=== PATIENT | male | born 1960 | race Hispanic/Latino ===

== ENCOUNTER 2018-10-22 08:50 | Day surgery (SDC) | payer MEDICARE ==
[~2018-10-22] VITALS: Ht 167.6 cm; Wt 93.3 kg
[~2018-10-22 08:50] MED LIST: AMLO10TA7 PO; ASPI-1197 PO; CETI10TA57 PO; CLON0.1T PO; CLOP75TA14 PO; DOCU100T8 PO; GABA-529 PO; GLIP2.5T17 PO; HYDR25TA PO; INSU100I21 SQ; INSU100I3 SQ; LEVO75TA10 PO; LORA2TAB2 PO; METF-446 PO; METO-391 PO; MULT-1258 PO; NITR0.4T SL; OMEP-50 PO; SERT100T12 PO; SIMV20TA6 PO; SODIUM CHLORIDE 0.9% 1000ML 1,000 ML IV ONE; SPIR25TA6 PO
[2018-10-22 10:55] VITALS: BP 145/69
[2018-10-22] MEDS ORDERED: RANI150C4 PO (11:49)
[2018-10-22] MEDS ORDERED: PSYL0.4C2 PO (11:49)
[2018-10-22] MEDS ORDERED: LISI-617 PO (11:49)
[2018-10-22] MEDS ORDERED: METO100T7 PO (11:49)
[2018-10-22] MEDS ORDERED: SERT100T12 PO (11:49)
[2018-10-22] MEDS ORDERED: ATOR20TA65 PO (11:49)
[2018-10-22 11:54] VITALS: BP 97/49
[2018-10-22 11:59] VITALS: BP 100/53
[2018-10-22 12:04] VITALS: BP 101/54
[2018-10-22 12:10] VITALS: BP 106/59
[2018-10-22 12:27] VITALS: BP 108/56
== END 2018-10-22 12:27 | disposition home or self-care (01) ==
LOC: ENDO 08:50 → DAH 08:50 → ENDO 12:27
PROVIDERS: ATTEND Internal Medicine
DX: Z09 Encounter for follow-up examination after completed treatment for conditions other than malignant neoplasm (principal); K63.5 Polyp of colon; K62.1 Rectal polyp; E78.5 Hyperlipidemia, unspecified; E11.9 Type 2 diabetes mellitus without complications; M19.90 Unspecified osteoarthritis, unspecified site; I25.10 Atherosclerotic heart disease of native coronary artery without angina pectoris; I11.0 Hypertensive heart disease with heart failure; I50.22 Chronic systolic (congestive) heart failure; Z86.010 Personal history of colon polyps; Z79.899 Other long term (current) drug therapy; Z79.84 Long term (current) use of oral hypoglycemic drugs; Z98.890 Other specified postprocedural states; Z79.01 Long term (current) use of anticoagulants
CPT/HCPCS: 45380; 82948; 88305; A4606; J7030

== ENCOUNTER 2020-03-14 09:13 | Day surgery (SDC) | payer MEDICARE ==
[2020-03-13 11:56] LABS: BASOPHILS % (AUTO) 0.4 % (0.0-5.0); EOSINOPHILS % (AUTO) 4.8 % (0.0-8.0); HEMATOCRIT 37.2 % (42-54); LYMPHOCYTES % (AUTO) 27.9 % (21.0-51.0); MEAN CORPUSCULAR HEMOGLOBIN 33.9 pg (27.0-33.0); MEAN CORPUSCULAR HGB CONC 36.8 g/dL (32.0-36.0); MEAN CORPUSCULAR VOLUME 92.1 fL (79-99); MONOCYTES % (AUTO) 6.3 % (3.0-13.0); NEUTROPHILS % (AUTO) 59.7 % (40.0-77.0); PLATELET COUNT (AUTO) 194 K/uL (130-400); RED BLOOD CELL COUNT(AUTO) 4.04 MIL/uL (4.50-6.20); RED CELL DISTRIBUTION WIDTH 11.8 % (11.0-15.5); WHITE BLOOD COUNT (AUTO) 9.9 K/uL (4.8-10.8)
[2020-03-13 12:04] LABS: CREATININE 1.5 mg/dL (0.5-1.5); POTASSIUM 4.3 mmol/L (3.5-5.1)
[2020-03-13 12:06] LABS: INR 1.18 (0.85-1.15); PROTHROMBIN TIME 12.4 SEC (9.6-11.6)
[2020-03-13 12:07] LABS: PARTIAL THROMBOPLASTIN TIME 32.4 SEC (26.3-35.5)
[2020-03-13 13:25] VITALS: BP 111/71
[2020-03-14] VITALS (12 sets, daily range): BP systolic 98–138; BP diastolic 58–73
[~2020-03-14 09:13] MED LIST changes: +AMLO-258 PO; -AMLO10TA7 PO; +APIX5TAB PO; -ASPI-1197 PO; +ATOR20TA65 PO; -CETI10TA57 PO; -CLOP75TA14 PO; -DOCU100T8 PO; +FAMO40TA7 PO; -GABA-529 PO; +GLIP-162 PO; -GLIP2.5T17 PO; -INSU100I3 SQ; +INSU3INS5 SQ; +LEVO112T7 PO; -LEVO75TA10 PO; +LISI-617 PO; -LORA2TAB2 PO; +LORA2TAB80 PO; +MECL-160 PO; -METO-391 PO; +METO100T14 PO; -MULT-1258 PO; -NITR0.4T SL; +NITR0.4T50 SL; -OMEP-50 PO; -SIMV20TA6 PO; +SODIUM CHLORIDE 0.9% 100 ML IV SCH; -SODIUM CHLORIDE 0.9% 1000ML 1,000 ML IV ONE
[2020-03-14] MEDS ORDERED: FLUMAZENIL 0.1MG/1ML 5ML VIAL IV ONE (10:37)
[2020-03-14] MEDS ORDERED: SODIUM CHLORIDE 0.9% 1000ML 1,000 ML IV ONE (10:38)
[2020-03-14] MEDS ORDERED: NALOXONE HCL 0.4 MG/1 ML ML ONE (10:38)
[2020-03-14] MEDS ORDERED: FENTANYL CITRATE PF 50 MCG/1 ML 2ML VIAL ONE (10:38)
[2020-03-14] MEDS ORDERED: MIDAZOLAM HCL 1 MG/ML 2ML VIAL ONE (10:39)
[2020-03-14] MEDS ORDERED: FENTANYL CITRATE PF 50 MCG/1 ML 2ML VIAL IVP ONE (11:38)
[2020-03-14] MEDS ORDERED: MIDAZOLAM HCL 1 MG/ML 2ML VIAL IVP ONE (11:38)
== END 2020-03-14 13:00 | disposition home or self-care (01) ==
LOC: DAH 09:13
PROVIDERS: ATTEND Internal Medicine Cardiovascular Disease
DX: I48.0 Paroxysmal atrial fibrillation (principal); E11.22 Type 2 diabetes mellitus with diabetic chronic kidney disease; I13.0 Hypertensive heart and chronic kidney disease with heart failure and stage 1 through stage 4 chronic kidney disease, or unspecified chronic kidney disease; N18.9 Chronic kidney disease, unspecified; I50.42 Chronic combined systolic (congestive) and diastolic (congestive) heart failure; E11.51 Type 2 diabetes mellitus with diabetic peripheral angiopathy without gangrene; E78.5 Hyperlipidemia, unspecified; I87.2 Venous insufficiency (chronic) (peripheral); E03.9 Hypothyroidism, unspecified; Z79.01 Long term (current) use of anticoagulants; Z79.899 Other long term (current) drug therapy; Z98.890 Other specified postprocedural states; Z95.1 Presence of aortocoronary bypass graft; Z79.4 Long term (current) use of insulin
CPT/HCPCS: 36415; 80048; 82948 ×2; 85025; 85610; 85730; 92960; 93005 ×2; A4215; A4216; A4221; A4222; A4223 ×3; A4606; A4663; J2250; J3010; J7030; 99152; J2310; J3490

== ENCOUNTER 2021-01-12 04:14 | Inpatient (IN) | payer MEDICARE ==
[~2021-01-12] VITALS: Ht 157.5 cm; Wt 91.3 kg
[~2021-01-12 04:14] MED LIST changes: -CLON0.1T PO; +DOCU100T PO; -FAMO40TA7 PO; +INSU100I15 SQ; -INSU100I21 SQ; -LEVO112T7 PO; +LEVO125C4 PO; -LISI-617 PO; -MECL-160 PO; -METF-446 PO; -METO100T14 PO; +METO50TA9 PO; +PANT40TA55 PO; +SERT-440 PO; -SERT100T12 PO; -SODIUM CHLORIDE 0.9% 100 ML IV SCH; -SPIR25TA6 PO
[2021-01-12 04:56] LABS: ABG BASE EXCESS -2.7 mmol/L (-2.0-3.0); ABG HCO3 20.4 mmol/L (21.0-28.0); ABG OXYGEN SATURATION 93.7 % (95.0-99.0); ABG PCO2 31 mmHg (35-48)
[2021-01-12] MEDS ORDERED: FUROSEMIDE 40MG VIAL IVP ONE (05:00)
[2021-01-12] MEDS ORDERED: IPRATROPIUM/ALBUTEROL SULFATE 3 ML SOLUTION IH ONE (05:00)
[2021-01-12] MEDS ORDERED: NITROGLYCERIN 0.4 MG SL TAB SL PRN ×2 (05:00→15:30)
[2021-01-12] MEDS ORDERED: ENALAPRILAT DIHYDRATE 1.25MG/ML 1ML VIAL IV SCH (05:00)
[2021-01-12] MEDS ORDERED: NITROGLYCERIN 1GM OINT 1 INCH/1GM TD ONE (05:00)
[2021-01-12 05:19] LABS: BASOPHILS % (AUTO) 0.4 % (0.0-5.0); EOSINOPHILS % (AUTO) 8.3 % (0.0-8.0); HEMATOCRIT 31.8 % (42-54); LYMPHOCYTES % (AUTO) 13.4 % (21.0-51.0); MEAN CORPUSCULAR HEMOGLOBIN 32.8 pg (27.0-33.0); MEAN CORPUSCULAR HGB CONC 36.2 g/dL (32.0-36.0); MEAN CORPUSCULAR VOLUME 90.6 fL (79-99); MONOCYTES % (AUTO) 5.4 % (3.0-13.0); PLATELET COUNT (AUTO) 155 K/uL (130-400); RED BLOOD CELL COUNT(AUTO) 3.51 MIL/uL (4.50-6.20); WHITE BLOOD COUNT (AUTO) 12.5 K/uL (4.8-10.8)
[2021-01-12 05:35] LABS: CREATININE 1.2 mg/dL (0.5-1.5); POTASSIUM 3.9 mmol/L (3.5-5.1)
[2021-01-12 05:45] LABS: ALBUMIN 3.4 g/dL (3.5-5.0); B-TYPE NATRIURETIC PEPTIDE 364 pg/mL (0-100); BILIRUBIN,TOTAL 0.9 mg/dL (0.2-1.0); TOTAL PROTEIN, SERUM 7.2 g/dL (6.0-8.3)
[2021-01-12] MEDS ORDERED: AZITHROMYCIN 500MG VIAL IVPB ONE (06:30)
[2021-01-12] MEDS ORDERED: CEFTRIAXONE 1G VIAL IVP SCH (07:20)
[2021-01-12] MEDS ORDERED: AZITHROMYCIN 500MG+NS 250ML 250 ML IV SCH (07:30)
[2021-01-12] MEDS ORDERED: ONDANSETRON 4MG INJ IVP PRN (09:30)
[2021-01-12] MEDS ORDERED: LACTULOSE 20 GM/30 ML UDCUP PO PRN (09:30)
[2021-01-12] MEDS ORDERED: AZITHROMYCIN 500MG VIAL IVPB SCH (09:30)
[2021-01-12] MEDS ORDERED: DEXTROSE 50%-WATER 50 ML DISP.SYRIN IV PRN (09:30)
[2021-01-12] MEDS ORDERED: MAGNESIUM 2GM PREMIX 50ML 50 ML IV PRN (09:30)
[2021-01-12] MEDS ORDERED: POTASSIUM CHLORIDE 10% ELIXIR 20 MEQ/15 ML UDCUP PO PRN (09:30)
[2021-01-12] MEDS ORDERED: CLONIDINE HCL 0.1 MG TABLET PO PRN (09:30)
[2021-01-12] MEDS ORDERED: POTASSIUM CHLORIDE 20MEQ/100ML 100 ML IV PRN (09:30)
[2021-01-12] MEDS ORDERED: ACETAMINOPHEN 650 MG SUPPOSITORY RC PRN (09:30)
[2021-01-12] MEDS ORDERED: GLUCAGON 1MG KIT 1 MG ML IM PRN (09:30)
[2021-01-12] MEDS ORDERED: 0.9% NACL 250ML IVPB SCH (09:30)
[2021-01-12] MEDS ORDERED: ACETAMINOPHEN 325 MG TAB PO PRN (09:30)
[2021-01-12] MEDS ORDERED: LIDOCAINE HCL-MPF 1% 2ML VIAL IV PRN (09:30)
[2021-01-12] MEDS ORDERED: HYDRALAZINE 20MG/ML VIAL IV PRN (09:30)
[2021-01-12 09:52] LABS: APPEARANCE,URINE Clear (CLEAR); BILIRUBIN,URINE Negative (NEGATIVE); COLOR,URINE Yellow (YELLOW); GLUCOSE, URINE (UA) 500 mg/dL (NEGATIVE); KETONES,URINE Negative (NEGATIVE); LEUKOCYTE ESTERASE ,URINE Negative (NEGATIVE); NITRATE,URINE Negative (NEGATIVE); OCCULT BLOOD,URINE Negative (NEGATIVE); PROTEIN,URINE Negative (NEGATIVE); UROBILINOGEN,URINE 0.2 mg/dL (0.2-1.0)
[2021-01-12 09:59] LABS: AMPHET/METH SCREEN,URINE NEGATIVE (NEGATIVE); BARBITURATE SCREEN, URINE NEGATIVE (NEGATIVE); BENZODIAZEPINES SCREEN,URINE NEGATIVE (NEGATIVE); CANNABINOID SCREEN,URINE NEGATIVE (NEGATIVE); COCAINE SCREEN,URINE NEGATIVE (NEGATIVE); OPIATE SCREEN,URINE NEGATIVE (NEGATIVE); PHENCYCLIDINE SCREEN,URINE NEGATIVE (NEGATIVE)
[2021-01-12] MEDS: IPRATROPIUM/ALBUTEROL SULFATE 3 ML SOLUTION IH SCH ×2 (10:02→14:02)
[2021-01-12] MEDS: FUROSEMIDE 40MG VIAL IV SCH ×2 (10:06→20:48)
[2021-01-12 10:28] LABS: BACTERIA,URINE Few /HPF (None Seen); RBC,URINE 0-1 /HPF (0-1); SQUAMOUS EPITHELIAL CELL,UR 0-2 /HPF (0-2)
[2021-01-12 10:29] LABS: WBC,URINE 0-1 /HPF (0-1)
[2021-01-12] MEDS: INSULIN HUMULIN R 100 UNIT/ML 3ML SQ SCH ×3 (11:30→20:40)
[2021-01-12] MEDS ORDERED: LORAZEPAM 2 MG TABLET PO PRN (15:30)
[2021-01-12] MEDS ORDERED: LORAZEPAM 1 MG TABLET PO PRN (16:00)
[2021-01-12] MEDS: AZITHROMYCIN 250 MG TABLET PO SCH (16:21)
[2021-01-12] MEDS: METOPROLOL SUCCINATE 50 MG TAB.SR.24H PO SCH (16:48)
[2021-01-12] MEDS: INSULIN LISPRO 100 UNIT/ML 3ML SQ SCH (16:48)
[2021-01-12] MEDS: IPRATROPIUM 0.5 MG/2.5 ML INH IH SCH (18:37)
[2021-01-12] MEDS: METOPROLOL TARTRATE 25 MG TAB PO SCH (20:48)
[2021-01-12] MEDS: AMLODIPINE 5 MG TAB PO SCH (20:48)
[2021-01-12] MEDS: ATORVASTATIN 20 MG TABLET PO SCH (20:48)
[2021-01-12] MEDS: APIXABAN 5 MG TABLET PO SCH (20:48)
[2021-01-12] MEDS ORDERED: INSULIN GLARGINE 100 UNITS/ML 10 ML VIAL SQ SCH (21:00)
[2021-01-13] VITALS (7 sets, daily range): BP systolic 108–148; BP diastolic 44–78
[2021-01-13] MEDS: IPRATROPIUM 0.5 MG/2.5 ML INH IH SCH ×5 (00:05→23:15)
[2021-01-13] MEDS: LEVOTHYROXINE 125 MCG TABLET PO SCH (06:27)
[2021-01-13] MEDS: INSULIN LISPRO 100 UNIT/ML 3ML SQ SCH ×2 (06:31→11:30)
[2021-01-13] MEDS: INSULIN HUMULIN R 100 UNIT/ML 3ML SQ SCH ×4 (06:31→20:36)
[2021-01-13 06:50] LABS: BASOPHILS % (AUTO) 0.5 % (0.0-5.0); EOSINOPHILS % (AUTO) 11.3 % (0.0-8.0); HEMATOCRIT 32.4 % (42-54); LYMPHOCYTES % (AUTO) 21.7 % (21.0-51.0); MEAN CORPUSCULAR HEMOGLOBIN 31.9 pg (27.0-33.0); MEAN CORPUSCULAR HGB CONC 35.2 g/dL (32.0-36.0); MEAN CORPUSCULAR VOLUME 90.8 fL (79-99); MONOCYTES % (AUTO) 4.7 % (3.0-13.0); PLATELET COUNT (AUTO) 155 K/uL (130-400); RED BLOOD CELL COUNT(AUTO) 3.57 MIL/uL (4.50-6.20); RED CELL DISTRIBUTION WIDTH 13.1 % (11.0-15.5); WHITE BLOOD COUNT (AUTO) 9.9 K/uL (4.8-10.8)
[2021-01-13 06:56] LABS: HEMOGLOBIN A1C 10.4 % (4.0-6.0)
[2021-01-13 07:07] LABS: B-TYPE NATRIURETIC PEPTIDE 221 pg/mL (0-100)
[2021-01-13 07:22] LABS: CREATININE 1.2 mg/dL (0.5-1.5); MAGNESIUM 1.4 mg/dL (1.80-2.40); PHOSPHORUS 4.6 mg/dL (2.5-4.9); POTASSIUM 3.3 mmol/L (3.5-5.1); THYROID STIMULATING HORMONE 0.04 uIU/mL (0.36-3.74)
[2021-01-13] MEDS: ASPIRIN 81MG CHEW TAB PO SCH (08:05)
[2021-01-13] MEDS: GLIPIZIDE XL 5MG TAB PO SCH (08:08)
[2021-01-13] MEDS: DOCUSATE SODIUM 100 MG CAP PO SCH (08:08)
[2021-01-13] MEDS: HYDROCHLOROTHIAZIDE 25 MG TABLET PO SCH (08:09)
[2021-01-13] MEDS: APIXABAN 5 MG TABLET PO SCH ×2 (08:09→20:02)
[2021-01-13] MEDS: PANTOPRAZOLE 40 MG TAB DR PO SCH (08:10)
[2021-01-13] MEDS: METOPROLOL TARTRATE 25 MG TAB PO SCH ×2 (08:10→20:02)
[2021-01-13] MEDS: SERTRALINE HCL 50 MG TABLET PO SCH (08:10)
[2021-01-13] MEDS: CEFTRIAXONE 1G VIAL IVP SCH (08:11)
[2021-01-13] MEDS: FUROSEMIDE 40MG VIAL IV SCH ×2 (08:13→20:03)
[2021-01-13] MEDS: KCL 20 MEQ ERTAB PO PRN ×3 (08:18→16:22)
[2021-01-13] MEDS ORDERED: ENOXAPARIN SODIUM 40 MG/0.4 ML SYRINGE SQ SCH (09:00)
[2021-01-13] MEDS ORDERED: AZITHROMYCIN 500MG+NS 250ML 250 ML IV SCH (09:00)
[2021-01-13] MEDS: AZITHROMYCIN 250 MG TABLET PO SCH (16:22)
[2021-01-13] MEDS: METOPROLOL SUCCINATE 50 MG TAB.SR.24H PO SCH (16:22)
[2021-01-13] MEDS: AMLODIPINE 5 MG TAB PO SCH (20:02)
[2021-01-13] MEDS: ATORVASTATIN 20 MG TABLET PO SCH (20:02)
[2021-01-14] VITALS: BP 120/64
[2021-01-14 04:21] VITALS: BP 128/69
[2021-01-14] MEDS: LEVOTHYROXINE 125 MCG TABLET PO SCH (05:35)
[2021-01-14] MEDS: IPRATROPIUM 0.5 MG/2.5 ML INH IH SCH ×2 (06:57→11:03)
[2021-01-14 07:30] VITALS: BP 111/59
[2021-01-14] MEDS: INSULIN HUMULIN R 100 UNIT/ML 3ML SQ SCH ×2 (07:30→11:34)
[2021-01-14 07:50] LABS: MEAN CORPUSCULAR HEMOGLOBIN 32.1 pg (27.0-33.0); MEAN CORPUSCULAR HGB CONC 34.5 g/dL (32.0-36.0); RED BLOOD CELL COUNT(AUTO) 3.55 MIL/uL (4.50-6.20); RED CELL DISTRIBUTION WIDTH 13.2 % (11.0-15.5); WHITE BLOOD COUNT (AUTO) 8.7 K/uL (4.8-10.8)
[2021-01-14 07:57] LABS: CREATININE 1.3 mg/dL (0.5-1.5); POTASSIUM 3.6 mmol/L (3.5-5.1)
[2021-01-14] MEDS: DOCUSATE SODIUM 100 MG CAP PO SCH (10:05)
[2021-01-14] MEDS: PANTOPRAZOLE 40 MG TAB DR PO SCH (10:05)
[2021-01-14] MEDS: ASPIRIN 81MG CHEW TAB PO SCH (10:05)
[2021-01-14] MEDS: CEFTRIAXONE 1G VIAL IVP SCH (10:05)
[2021-01-14] MEDS: SERTRALINE HCL 50 MG TABLET PO SCH (10:06)
[2021-01-14] MEDS: GLIPIZIDE XL 5MG TAB PO SCH (10:06)
[2021-01-14] MEDS: HYDROCHLOROTHIAZIDE 25 MG TABLET PO SCH (10:06)
[2021-01-14] MEDS: APIXABAN 5 MG TABLET PO SCH (10:06)
[2021-01-14] MEDS: FUROSEMIDE 40MG VIAL IV SCH (10:07)
[2021-01-14] MEDS: METOPROLOL TARTRATE 25 MG TAB PO SCH (10:09)
[2021-01-14 11:00] VITALS: BP 123/62
[2021-01-14] MEDS ORDERED: AZIT250T PO (13:11)
[2021-01-14] MEDS ORDERED: ASPI-1005 PO (13:11)
[2021-01-14] MEDS ORDERED: FURO40TA5 PO (13:11)
[2021-01-14] MEDS: AZITHROMYCIN 250 MG TABLET PO SCH (16:30)
== END 2021-01-14 16:57 | disposition home or self-care (01) | DRG 291 ==
LOC: EDH 04:14 → EDHIP 09:09 → OBSVTOIN 09:09 → 4AH 01-13 02:43
PROVIDERS: ADMIT Internal Medicine Critical Care Medicine; ATTEND Internal Medicine Critical Care Medicine
PROC: 5A09357 Assistance with Respiratory Ventilation, Less than 24 Consecutive Hours, Continuous Positive Airway Pressure (ICD-10-PCS; principal; 2021-01-13)
PROC: 5A09357 Assistance with Respiratory Ventilation, Less than 24 Consecutive Hours, Continuous Positive Airway Pressure (ICD-10-PCS; 2021-01-14)
DX: I13.0 Hypertensive heart and chronic kidney disease with heart failure and stage 1 through stage 4 chronic kidney disease, or unspecified chronic kidney disease (principal); J96.01 Acute respiratory failure with hypoxia; I50.23 Acute on chronic systolic (congestive) heart failure; J20.9 Acute bronchitis, unspecified; E66.9 Obesity, unspecified; E78.5 Hyperlipidemia, unspecified; N18.9 Chronic kidney disease, unspecified; E11.22 Type 2 diabetes mellitus with diabetic chronic kidney disease; Z20.822 Contact with and (suspected) exposure to COVID-19; K21.9 Gastro-esophageal reflux disease without esophagitis; I48.91 Unspecified atrial fibrillation; I25.10 Atherosclerotic heart disease of native coronary artery without angina pectoris; G47.33 Obstructive sleep apnea (adult) (pediatric); F41.9 Anxiety disorder, unspecified; Z68.36 Body mass index [BMI] 36.0-36.9, adult; Z79.01 Long term (current) use of anticoagulants; Z79.4 Long term (current) use of insulin; Z79.899 Other long term (current) drug therapy
CPT/HCPCS: 36415; 36600; 71045; 71250; 80048; 80053; 80305; 81001; 82140; 82550; 82803; 82948; 83036; 83735; 83874; 83880; 84100; 84145; 84443; 84484; 85025; 85027; 85378; 87088; 87635; 87804; 93005; 94640; 94660; 94664; 94760; C9803; G0378; J0456; J0696; J1815; J1940; J3475; J3490

== ENCOUNTER 2021-01-30 22:13 | Inpatient (IN) | payer MEDICARE ==
[~2021-01-30] VITALS: Ht 167.6 cm; Wt 92.1 kg
[~2021-01-30 22:13] MED LIST changes: +ASPI-1005 PO; +AZIT250T PO; +FURO40TA5 PO
[2021-01-30] MEDS ORDERED: ACETAMINOPHEN 500 MG TABLET PO ONE (23:00)
[2021-01-30] MEDS ORDERED: IPRATROPIUM/ALBUTEROL SULFATE 3 ML SOLUTION IH ONE (23:00)
[2021-01-30] MEDS ORDERED: ASPIRIN 325MG TAB PO ONE (23:00)
[2021-01-30 23:26] LABS: BASOPHILS % (AUTO) 0.2 % (0.0-5.0); EOSINOPHILS % (AUTO) 4.5 % (0.0-8.0); HEMATOCRIT 35.5 % (42-54); LYMPHOCYTES % (AUTO) 7.9 % (21.0-51.0); MEAN CORPUSCULAR HEMOGLOBIN 31.6 pg (27.0-33.0); MEAN CORPUSCULAR HGB CONC 35.2 g/dL (32.0-36.0); MEAN CORPUSCULAR VOLUME 89.9 fL (79-99); MONOCYTES % (AUTO) 3.7 % (3.0-13.0); PLATELET COUNT (AUTO) 178 K/uL (130-400); RED BLOOD CELL COUNT(AUTO) 3.95 MIL/uL (4.50-6.20); RED CELL DISTRIBUTION WIDTH 12.7 % (11.0-15.5); WHITE BLOOD COUNT (AUTO) 17.1 K/uL (4.8-10.8)
[2021-01-30 23:37] LABS: INR 1.15 (0.85-1.15); PROTHROMBIN TIME 12.4 SEC (9.6-11.6)
[2021-01-30 23:39] LABS: PARTIAL THROMBOPLASTIN TIME 30.9 SEC (26.3-35.5)
[2021-01-30 23:46] LABS: CREATININE 1.9 mg/dL (0.5-1.5); POTASSIUM 3.6 mmol/L (3.5-5.1)
[2021-01-30 23:51] LABS: ALBUMIN 3.6 g/dL (3.5-5.0); BILIRUBIN,TOTAL 0.6 mg/dL (0.2-1.0); MAGNESIUM 1.5 mg/dL (1.80-2.40); TOTAL PROTEIN, SERUM 7.3 g/dL (6.0-8.3)
[2021-01-31] MEDS ORDERED: AZITHROMYCIN 250 MG TABLET PO ONE
[2021-01-31] MEDS ORDERED: CEFTRIAXONE 1G VIAL IVP ONE
[2021-01-31 00:05] LABS: B-TYPE NATRIURETIC PEPTIDE 203 pg/mL (0-100)
[2021-01-31] MEDS ORDERED: IPRATROPIUM/ALBUTEROL SULFATE 3 ML SOLUTION IH ONE (00:30)
[2021-01-31] MEDS ORDERED: ZOLPIDEM TARTRATE 5 MG TAB PO PRN (01:00)
[2021-01-31] MEDS ORDERED: LACTULOSE 20 GM/30 ML UDCUP PO PRN (01:00)
[2021-01-31] MEDS ORDERED: NITROGLYCERIN 0.4 MG SL TAB SL PRN (01:00)
[2021-01-31] MEDS ORDERED: ACETAMINOPHEN 325 MG TAB PO PRN ×2 (01:00)
[2021-01-31] MEDS ORDERED: LABETALOL 20MG SYG IV PRN (01:00)
[2021-01-31] MEDS ORDERED: DEXTROSE 50%-WATER 50 ML DISP.SYRIN IV PRN (01:00)
[2021-01-31] MEDS ORDERED: MAG/ALUM/SIMETH 30 ML UDCUP PO PRN (01:00)
[2021-01-31] MEDS ORDERED: GLUCAGON 1MG KIT 1 MG ML IM PRN (01:00)
[2021-01-31] MEDS ORDERED: ONDANSETRON 4MG INJ IV PRN (01:00)
[2021-01-31] MEDS ORDERED: AZITHROMYCIN 500MG+NS 250ML 250 ML IV ONE (02:23)
[2021-01-31] MEDS ORDERED: CEFTRIAXONE 1G VIAL ONE (02:23)
[2021-01-31] MEDS: GUAIFENESIN-DM 200/20 MG 10 ML PO SCH ×4 (02:26→21:28)
[2021-01-31] MEDS: IPRATROPIUM/ALBUTEROL SULFATE 3 ML SOLUTION IH SCH ×4 (06:16→23:44)
[2021-01-31] MEDS ORDERED: 0.9% NACL 250ML IVPB SCH (07:30)
[2021-01-31] MEDS ORDERED: LEVOTHYROXINE 125 MCG TABLET PO STA (07:39)
[2021-01-31] MEDS: INSULIN HUMULIN R 100 UNIT/ML 3ML SQ SCH ×4 (08:09→21:31)
[2021-01-31] MEDS: SOLU-MEDROL 125MG VIAL IVP SCH ×2 (08:09→15:54)
[2021-01-31 08:27] LABS: ABG BASE EXCESS 1.6 mmol/L (-2.0-3.0); ABG OXYGEN SATURATION 95.7 % (95.0-99.0); ABG PCO2 36 mmHg (35-48)
[2021-01-31] MEDS ORDERED: ENOXAPARIN SODIUM 40 MG/0.4 ML SYRINGE SQ SCH (09:00)
[2021-01-31] MEDS ORDERED: FAMOTIDINE 20MG VIAL IV SCH (09:00)
[2021-01-31] MEDS: ASPIRIN 81 MG EC TAB PO SCH (09:16)
[2021-01-31] MEDS: METOPROLOL SUCCINATE 50 MG TAB.SR.24H PO SCH (09:16)
[2021-01-31] MEDS: APIXABAN 5 MG TABLET PO SCH ×2 (09:16→21:28)
[2021-01-31] MEDS: AZITHROMYCIN 500MG+NS 250ML 250 ML IV SCH (09:16)
[2021-01-31] MEDS: FUROSEMIDE 40MG VIAL IV SCH (09:16)
[2021-01-31 09:18] LABS: BASOPHILS % (AUTO) 0.3 % (0.0-5.0); EOSINOPHILS % (AUTO) 8.1 % (0.0-8.0); HEMATOCRIT 32.5 % (42-54); LYMPHOCYTES % (AUTO) 10.3 % (21.0-51.0); MEAN CORPUSCULAR HEMOGLOBIN 32.4 pg (27.0-33.0); MEAN CORPUSCULAR HGB CONC 35.7 g/dL (32.0-36.0); MEAN CORPUSCULAR VOLUME 90.8 fL (79-99); NEUTROPHILS % (AUTO) 75.6 % (40.0-77.0); PLATELET COUNT (AUTO) 130 K/uL (130-400); RED BLOOD CELL COUNT(AUTO) 3.58 MIL/uL (4.50-6.20); RED CELL DISTRIBUTION WIDTH 12.9 % (11.0-15.5); WHITE BLOOD COUNT (AUTO) 11.7 K/uL (4.8-10.8)
[2021-01-31 09:27] LABS: CREATININE 1.6 mg/dL (0.5-1.5); POTASSIUM 3.4 mmol/L (3.5-5.1)
[2021-01-31 09:39] LABS: ALBUMIN 3.2 g/dL (3.5-5.0); BILIRUBIN,TOTAL 0.6 mg/dL (0.2-1.0); THYROID STIMULATING HORMONE 0.05 uIU/mL (0.36-3.74)
[2021-01-31 14:30] VITALS: BP 121/67
[2021-01-31] MEDS ORDERED: CEFTRIAXONE 1G VIAL IVP SCH (14:30)
[2021-01-31] MEDS ORDERED: INSU100I21 SQ (15:01)
[2021-01-31 20:00] VITALS: BP 122/59
[2021-01-31] MEDS ORDERED: AZITHROMYCIN 500MG VIAL IVPB SCH (21:00)
[2021-01-31] MEDS: SOLU-MEDROL 40MG VIAL IVP SCH (21:28)
[2021-02-01] VITALS (7 sets, daily range): BP systolic 107–135; BP diastolic 61–93
[2021-02-01] MEDS: GUAIFENESIN-DM 200/20 MG 10 ML PO SCH ×5 (00:47→23:42)
[2021-02-01] MEDS: SOLU-MEDROL 40MG VIAL IVP SCH ×4 (00:47→18:04)
[2021-02-01 03:58] LABS: HEMATOCRIT 33.2 % (42-54); MEAN CORPUSCULAR HEMOGLOBIN 32.3 pg (27.0-33.0); MEAN CORPUSCULAR HGB CONC 36.1 g/dL (32.0-36.0); MEAN CORPUSCULAR VOLUME 89.2 fL (79-99); PLATELET COUNT (AUTO) 158 K/uL (130-400); RED BLOOD CELL COUNT(AUTO) 3.72 MIL/uL (4.50-6.20); RED CELL DISTRIBUTION WIDTH 12.5 % (11.0-15.5); WHITE BLOOD COUNT (AUTO) 12.5 K/uL (4.8-10.8)
[2021-02-01 04:12] LABS: CREATININE 1.9 mg/dL (0.5-1.5); MAGNESIUM 1.8 mg/dL (1.80-2.40); POTASSIUM 3.6 mmol/L (3.5-5.1)
[2021-02-01 04:40] LABS: ABG BASE EXCESS 0.9 mmol/L (-2.0-3.0); ABG HCO3 23.8 mmol/L (21.0-28.0); ABG OXYGEN SATURATION 98.1 % (95.0-99.0); ABG PCO2 33 mmHg (35-48)
[2021-02-01 04:54] LABS: ABG BASE EXCESS -1.5 mmol/L (-2.0-3.0); ABG HCO3 20.7 mmol/L (21.0-28.0); ABG OXYGEN SATURATION 98.2 % (95.0-99.0); ABG PCO2 29 mmHg (35-48)
[2021-02-01] MEDS ORDERED: COMPOUND PO MISCELLANEOUS 1 EACH MISC MISC PRN (06:30)
[2021-02-01] MEDS: IPRATROPIUM/ALBUTEROL SULFATE 3 ML SOLUTION IH SCH ×4 (06:35→23:38)
[2021-02-01] MEDS: INSULIN GLARGINE 100 UNITS/ML 10 ML VIAL SQ SCH ×2 (06:53→09:00)
[2021-02-01] MEDS: INSULIN HUMULIN R 100 UNIT/ML 3ML SQ SCH ×4 (06:54→21:12)
[2021-02-01 08:29] LABS: HEMOGLOBIN A1C 9.6 % (4.0-6.0)
[2021-02-01] MEDS ORDERED: OSELTAMIVIR PHOSPHATE 75 MG CAP PO SCH (09:00)
[2021-02-01] MEDS ORDERED: ENOXAPARIN SODIUM 40 MG/0.4 ML SYRINGE SQ SCH (09:00)
[2021-02-01] MEDS: FAMOTIDINE 20MG TAB PO SCH (09:14)
[2021-02-01] MEDS: AZITHROMYCIN 500MG+NS 250ML 250 ML IV SCH (09:14)
[2021-02-01] MEDS: ASPIRIN 81 MG EC TAB PO SCH (09:14)
[2021-02-01] MEDS: FUROSEMIDE 40MG VIAL IV SCH (09:14)
[2021-02-01] MEDS: METOPROLOL SUCCINATE 50 MG TAB.SR.24H PO SCH (09:14)
[2021-02-01] MEDS: CEFTRIAXONE 1G VIAL IVP SCH (09:14)
[2021-02-01] MEDS: OSELTAMIVIR SUSP 15 MG/ML (6 CAPS/29ML) PO SCH ×4 (09:17→20:05)
[2021-02-01] MEDS ORDERED: MAGNESIUM 2GM PREMIX 50ML 50 ML IV SCH (11:30)
[2021-02-01] MEDS: KCL 20 MEQ ERTAB PO SCH (12:20)
[2021-02-01] MEDS: APIXABAN 5 MG TABLET PO SCH (20:05)
[2021-02-02 04:00] LABS: HEMATOCRIT 33.5 % (42-54); MEAN CORPUSCULAR HEMOGLOBIN 31.6 pg (27.0-33.0); MEAN CORPUSCULAR HGB CONC 35.2 g/dL (32.0-36.0); MEAN CORPUSCULAR VOLUME 89.8 fL (79-99); RED BLOOD CELL COUNT(AUTO) 3.73 MIL/uL (4.50-6.20); RED CELL DISTRIBUTION WIDTH 12.7 % (11.0-15.5); WHITE BLOOD COUNT (AUTO) 17.4 K/uL (4.8-10.8)
[2021-02-02 04:07] VITALS: BP 128/64
[2021-02-02 04:16] LABS: CREATININE 2.2 mg/dL (0.5-1.5); POTASSIUM 3.7 mmol/L (3.5-5.1)
[2021-02-02] MEDS: GUAIFENESIN-DM 200/20 MG 10 ML PO SCH ×2 (06:11→11:14)
[2021-02-02] MEDS: INSULIN HUMULIN R 100 UNIT/ML 3ML SQ SCH ×3 (06:12→16:40)
[2021-02-02] MEDS: IPRATROPIUM/ALBUTEROL SULFATE 3 ML SOLUTION IH SCH ×2 (06:38→12:13)
[2021-02-02 07:00] VITALS: BP 134/63
[2021-02-02] MEDS: METOPROLOL SUCCINATE 50 MG TAB.SR.24H PO SCH (08:32)
[2021-02-02] MEDS: FAMOTIDINE 20MG TAB PO SCH (08:32)
[2021-02-02] MEDS: ASPIRIN 81 MG EC TAB PO SCH (08:32)
[2021-02-02] MEDS: APIXABAN 5 MG TABLET PO SCH (08:33)
[2021-02-02] MEDS: AZITHROMYCIN 500MG+NS 250ML 250 ML IV SCH (08:33)
[2021-02-02] MEDS: CEFTRIAXONE 1G VIAL IVP SCH (08:34)
[2021-02-02] MEDS: OSELTAMIVIR SUSP 15 MG/ML (6 CAPS/29ML) PO SCH ×2 (08:53)
[2021-02-02] MEDS: INSULIN GLARGINE 100 UNITS/ML 10 ML VIAL SQ SCH (08:55)
[2021-02-02] MEDS: KCL 20 MEQ ERTAB PO SCH (08:55)
[2021-02-02] MEDS ORDERED: FUROSEMIDE 40 MG TABLET PO SCH (09:00)
[2021-02-02] MEDS ORDERED: PREDNISONE 20 MG TABLET PO SCH (09:00)
[2021-02-02 11:00] VITALS: BP 118/64
[2021-02-02 16:00] VITALS: BP 126/57
[2021-02-02] MEDS ORDERED: OSEL45CA PO (16:27)
[2021-02-02] MEDS ORDERED: PRED20B PO (16:27)
[2021-02-02] MEDS ORDERED: LEVO500T90 PO (16:27)
== END 2021-02-02 17:30 | disposition home or self-care (01) | DRG 193 ==
LOC: EDH 22:13 → EDHIP 01-31 00:27 → OBSVTOIN 01-31 00:27 → 4DH 01-31 11:36
PROVIDERS: ADMIT Internal Medicine Critical Care Medicine; ATTEND Internal Medicine Critical Care Medicine
PROC: 5A09357 Assistance with Respiratory Ventilation, Less than 24 Consecutive Hours, Continuous Positive Airway Pressure (ICD-10-PCS; principal; 2021-01-31)
PROC: 5A09357 Assistance with Respiratory Ventilation, Less than 24 Consecutive Hours, Continuous Positive Airway Pressure (ICD-10-PCS; 2021-01-31)
PROC: 5A09357 Assistance with Respiratory Ventilation, Less than 24 Consecutive Hours, Continuous Positive Airway Pressure (ICD-10-PCS; 2021-01-31)
DX: J10.1 Influenza due to other identified influenza virus with other respiratory manifestations (principal); I50.23 Acute on chronic systolic (congestive) heart failure; I13.0 Hypertensive heart and chronic kidney disease with heart failure and stage 1 through stage 4 chronic kidney disease, or unspecified chronic kidney disease; N17.9 Acute kidney failure, unspecified; J20.9 Acute bronchitis, unspecified; N18.9 Chronic kidney disease, unspecified; I48.91 Unspecified atrial fibrillation; E11.65 Type 2 diabetes mellitus with hyperglycemia; E11.22 Type 2 diabetes mellitus with diabetic chronic kidney disease; E78.00 Pure hypercholesterolemia, unspecified; Z20.822 Contact with and (suspected) exposure to COVID-19; E03.9 Hypothyroidism, unspecified; E66.9 Obesity, unspecified; K21.9 Gastro-esophageal reflux disease without esophagitis; I25.10 Atherosclerotic heart disease of native coronary artery without angina pectoris; E78.5 Hyperlipidemia, unspecified; F41.9 Anxiety disorder, unspecified; Z68.32 Body mass index [BMI] 32.0-32.9, adult; Z95.1 Presence of aortocoronary bypass graft; Z79.01 Long term (current) use of anticoagulants; Z79.4 Long term (current) use of insulin; Z79.899 Other long term (current) drug therapy
CPT/HCPCS: 36415; 36600; 71045; 80048; 80053; 82435; 82803; 82947; 82948; 83036; 83605; 83735; 83880; 84100; 84132; 84145; 84295; 84443; 84484; 85018; 85025; 85027; 85378; 85610; 85730; 87040; 87635; 87804; 93005; 94640; 94660; 94664; 94760; C9803; G0378; J0456; J0696; J1650; J1815; J1940; J2920; J2930; J3475; J3490

== ENCOUNTER → 2021-03-21 | Outpatient (CLI) | payer MEDICARE ==
[~2021-03-21] VITALS: Ht 167.6 cm; Wt 92.9 kg
[~2021-03-21] MED LIST changes: +0.9%NACL 1000ML 1,000 ML IV SCH; +ALBU18HF7 IH; -AZIT250T PO; +BIMA12.5OS OU; +CEFAZOLIN SODIUM 1 GM VIAL IVP SCH; -FURO40TA5 PO; +INSU100I21 SQ; -INSU3INS5 SQ; +LEVO500T90 PO; +METF-444 PO; +METO-409 PO; +METO200T49 PO; +OSEL45CA PO; +PANT40TA54 PO; -PANT40TA55 PO; +PRED20B PO
[2021-03-21 11:40] LABS: BASOPHILS % (AUTO) 0.4 % (0.0-5.0); EOSINOPHILS % (AUTO) 21.2 % (0.0-8.0); HEMATOCRIT 34.1 % (42-54); LYMPHOCYTES % (AUTO) 20.5 % (21.0-51.0); MEAN CORPUSCULAR HGB CONC 35.8 g/dL (32.0-36.0); MEAN CORPUSCULAR VOLUME 92.2 fL (79-99); MONOCYTES % (AUTO) 6.2 % (3.0-13.0); NEUTROPHILS % (AUTO) 50.6 % (40.0-77.0); PLATELET COUNT (AUTO) 185 K/uL (130-400); RED CELL DISTRIBUTION WIDTH 13.5 % (11.0-15.5); WHITE BLOOD COUNT (AUTO) 11.7 K/uL (4.8-10.8)
[2021-03-21 11:50] LABS: CREATININE 1.4 mg/dL (0.5-1.5); POTASSIUM 3.3 mmol/L (3.5-5.1)
[2021-03-21 11:51] LABS: INR 1.2 (0.85-1.15); PROTHROMBIN TIME 12.9 SEC (9.6-11.6)
[2021-03-21 13:29] VITALS: BP 131/60
[2021-03-25 06:30] VITALS: BP 135/71
[2021-03-25 06:47] LABS: BASOPHILS % (AUTO) 0.7 % (0.0-5.0); EOSINOPHILS % (AUTO) 18.9 % (0.0-8.0); HEMATOCRIT 33.4 % (42-54); LYMPHOCYTES % (AUTO) 22.4 % (21.0-51.0); MEAN CORPUSCULAR HEMOGLOBIN 33.1 pg (27.0-33.0); MEAN CORPUSCULAR HGB CONC 37.7 g/dL (32.0-36.0); MEAN CORPUSCULAR VOLUME 87.7 fL (79-99); MONOCYTES % (AUTO) 5.3 % (3.0-13.0); NEUTROPHILS % (AUTO) 50.9 % (40.0-77.0); PLATELET COUNT (AUTO) 154 K/uL (130-400); RED BLOOD CELL COUNT(AUTO) 3.81 MIL/uL (4.50-6.20); RED CELL DISTRIBUTION WIDTH 13.4 % (11.0-15.5); WHITE BLOOD COUNT (AUTO) 13.1 K/uL (4.8-10.8)
[2021-03-25 06:56] LABS: CREATININE 1.5 mg/dL (0.5-1.5); POTASSIUM 3.7 mmol/L (3.5-5.1)
[2021-03-25 08:45] LABS: APPEARANCE,URINE Clear (CLEAR); BILIRUBIN,URINE Negative (NEGATIVE); COLOR,URINE Yellow (YELLOW); GLUCOSE, URINE (UA) TRACE mg/dL (NEGATIVE); KETONES,URINE Negative (NEGATIVE); LEUKOCYTE ESTERASE ,URINE Negative (NEGATIVE); NITRATE,URINE Negative (NEGATIVE); OCCULT BLOOD,URINE Negative (NEGATIVE); PH,URINE 5.5 (5.0-8.0); PROTEIN,URINE Negative (NEGATIVE); UROBILINOGEN,URINE 0.2 mg/dL (0.2-1.0)
[2021-03-25 08:53] LABS: BACTERIA,URINE Rare /HPF (None Seen); RBC,URINE 0-1 /HPF (0-1); SQUAMOUS EPITHELIAL CELL,UR Rare /HPF (0-2); WBC,URINE 0-1 /HPF (0-1)
== END | disposition home or self-care (01) ==
LOC: DAH 10:41 → EDSTATUS 12:00 → DAH 03-25 06:09
PROVIDERS: ATTEND Internal Medicine Cardiovascular Disease
DX: Z01.810 Encounter for preprocedural cardiovascular examination (principal); I48.0 Paroxysmal atrial fibrillation; I50.42 Chronic combined systolic (congestive) and diastolic (congestive) heart failure; Z79.899 Other long term (current) drug therapy; Z98.890 Other specified postprocedural states; Z53.8 Procedure and treatment not carried out for other reasons
CPT/HCPCS: 36415; 80048; 81001; 82948; 85025; 85610; 85730; 93005

== ENCOUNTER → 2022-07-18 | Outpatient (CLI) | payer MEDICARE ==
[~2022-07-18] MED LIST changes: -0.9%NACL 1000ML 1,000 ML IV SCH; +AEC81 PO; -ALBU18HF7 IH; -ASPI-1005 PO; -CEFAZOLIN SODIUM 1 GM VIAL IVP SCH; +CLONIDINE PO; -INSU100I21 SQ; +INSU100I3 SQ; -LEVO500T90 PO; -METO200T49 PO; -METO50TA9 PO; -OSEL45CA PO; -PRED20B PO; +TRAM50TA4 PO
[2022-07-18 12:37] LABS: CREATININE 1.8 mg/dL (0.5-1.5); POTASSIUM 4.2 mmol/L (3.5-5.1)
== END | disposition home or self-care (01) ==
LOC: LAB 09:09
PROVIDERS: ATTEND Internal Medicine Cardiovascular Disease
DX: I50.22 Chronic systolic (congestive) heart failure (principal)
CPT/HCPCS: 36415; 80048; 83880

== ENCOUNTER → 2022-08-15 | Outpatient (CLI) | payer MEDICARE ==
[2022-08-15 15:01] LABS: POTASSIUM 4.1 mmol/L (3.5-5.1)
== END | disposition home or self-care (01) ==
LOC: LAB 09:45
PROVIDERS: ATTEND Internal Medicine Cardiovascular Disease
DX: I50.22 Chronic systolic (congestive) heart failure (principal)
CPT/HCPCS: 36415; 80048; 83880

== ENCOUNTER 2022-09-05 10:26 | Emergency (ER) | payer MEDICARE ==
[~2022-09-05] VITALS: Ht 167.6 cm; Wt 90.7 kg
[2022-09-05 10:46] LABS: BASOPHILS % (AUTO) 0.3 % (0.0-5.0); HEMATOCRIT 27.6 % (42-54); LYMPHOCYTES % (AUTO) 14.2 % (21.0-51.0); MEAN CORPUSCULAR HEMOGLOBIN 33.5 pg (27.0-33.0); MEAN CORPUSCULAR HGB CONC 34.4 g/dL (32.0-36.0); MEAN CORPUSCULAR VOLUME 97.2 fL (79-99); MONOCYTES % (AUTO) 5.4 % (3.0-13.0); NEUTROPHILS % (AUTO) 77.6 % (40.0-77.0); NUCLEATED RED BLOOD CELLS 0.2 % (0.0-0.19); PLATELET COUNT (AUTO) 188 K/uL (130-400); RED BLOOD CELL COUNT(AUTO) 2.84 MIL/uL (4.50-6.20); RED CELL DISTRIBUTION WIDTH 15.1 % (11.0-15.5); WHITE BLOOD COUNT (AUTO) 11.7 K/uL (4.8-10.8)
[2022-09-05] MEDS ORDERED: DILTIAZEM 125 MG/25 ML INJ IV ONE (10:50)
[2022-09-05] MEDS ORDERED: DILTIAZEM 125 MG/25 ML INJ 125 MG in 0.9%NACL 100ML 100 ML IV SCH (11:00)
[2022-09-05 11:43] LABS: CREATININE 2.4 mg/dL (0.5-1.5); POTASSIUM 4.3 mmol/L (3.5-5.1)
[2022-09-05 11:47] LABS: ALBUMIN 3.6 g/dL (3.5-5.0); TOTAL PROTEIN, SERUM 7.4 g/dL (6.0-8.3)
[2022-09-05 13:29] VITALS: BP 114/71
== END 2022-09-05 13:43 | disposition home or self-care (01) ==
LOC: EDH 10:26
DX: I48.91 Unspecified atrial fibrillation (principal); E11.9 Type 2 diabetes mellitus without complications; E78.00 Pure hypercholesterolemia, unspecified; I10 Essential (primary) hypertension; Z79.01 Long term (current) use of anticoagulants; Z79.4 Long term (current) use of insulin; Z79.82 Long term (current) use of aspirin; Z79.84 Long term (current) use of oral hypoglycemic drugs; Z79.890 Hormone replacement therapy; Z79.899 Other long term (current) drug therapy
CPT/HCPCS: 99285; 96374; 71045; 84484; 80053; 85025; 36415; 93005; J3490 ×2

== ENCOUNTER → 2022-09-09 | Outpatient (CLI) | payer MEDICARE | END | disposition home or self-care (01) | LOC: SHCH 09:50 | PROVIDERS: ATTEND Internal Medicine Cardiovascular Disease | DX: I35.1 Nonrheumatic aortic (valve) insufficiency (principal); I11.9 Hypertensive heart disease without heart failure; E11.9 Type 2 diabetes mellitus without complications; E78.5 Hyperlipidemia, unspecified; Z95.0 Presence of cardiac pacemaker; Z95.1 Presence of aortocoronary bypass graft | CPT/HCPCS: 93306 ==

== ENCOUNTER → 2022-09-29 | Outpatient (CLI) | payer MEDICARE ==
[2022-09-29 12:30] LABS: CREATININE 2.4 mg/dL (0.5-1.5)
== END | disposition home or self-care (01) ==
LOC: LAB 09:25
PROVIDERS: ATTEND Internal Medicine Cardiovascular Disease
DX: I50.22 Chronic systolic (congestive) heart failure (principal)
CPT/HCPCS: 36415; 80048; 83880

== ENCOUNTER 2022-11-18 05:53 | Day surgery (SDC) | payer MEDICARE ==
[2022-11-14 15:13] LABS: BASOPHILS # (AUTO) 0.05 K/uL (0.00-0.20); BASOPHILS % (AUTO) 0.6 % (0.0-5.0); EOSINOPHILS # (AUTO) 0.21 K/uL (0.00-0.70); EOSINOPHILS % (AUTO) 2.7 % (0.0-8.0); HEMATOCRIT 31.7 % (42-54); IMMATURE GRANULOCYTE ABSOLUTE 0.06 K/uL (0-1); LYMPHOCYTES # (AUTO) 1.7 K/uL (1.0-4.8); LYMPHOCYTES % (AUTO) 21.7 % (21.0-51.0); MEAN CORPUSCULAR HEMOGLOBIN 31.1 pg (27.0-33.0); MEAN CORPUSCULAR HGB CONC 30.6 g/dL (32.0-36.0); MEAN CORPUSCULAR VOLUME 101.6 fL (79-99); MONOCYTES # (AUTO) 0.5 K/uL (0.1-1.0); MONOCYTES % (AUTO) 6.3 % (3.0-13.0); NEUTROPHILS # (AUTO) 5.3 K/uL (1.8-7.7); NEUTROPHILS % (AUTO) 67.9 % (40.0-77.0); PLATELET COUNT (AUTO) 182 K/uL (130-400); RED BLOOD CELL COUNT(AUTO) 3.12 MIL/uL (4.50-6.20); RED CELL DISTRIBUTION WIDTH 15.8 % (11.0-15.5); WHITE BLOOD COUNT (AUTO) 7.8 K/uL (4.8-10.8)
[2022-11-14 15:23] LABS: INR 1.74 (0.85-1.15); PROTHROMBIN TIME 19.5 SEC (9.6-11.6)
[2022-11-14 15:24] LABS: CREATININE 2.2 mg/dL (0.5-1.5); POTASSIUM 3.8 mmol/L (3.5-5.1)
[2022-11-14 15:25] VITALS: BP 103/67; PULSE 80; RESP 22
[2022-11-14 15:25] LABS: PARTIAL THROMBOPLASTIN TIME 35.7 SEC (26.3-35.5)
[2022-11-18] VITALS (9 sets, daily range): BP systolic 99–124; BP diastolic 68–81; PULSE 78–99; RESP 12–21
[~2022-11-18] VITALS: Ht 162.6 cm; Wt 94.7 kg
[~2022-11-18 05:53] MED LIST changes: -AEC81 PO; -AMLO-258 PO; -BIMA12.5OS OU; -CLONIDINE PO; +FURO40TA5 PO; -GLIP-162 PO; -HYDR25TA PO; -INSU100I15 SQ; -INSU100I3 SQ; +INSU100V12 SQ; -LORA2TAB80 PO; -METF-444 PO; -METO-409 PO; +METO25TA3 PO; -NITR0.4T50 SL; -PANT40TA54 PO; +POTA-192 PO; -TRAM50TA4 PO
[2022-11-18] MEDS ORDERED: 0.9%NACL 1000ML 1,000 ML IV ONE (06:38)
[2022-11-18] MEDS ORDERED: MIDAZOLAM HCL 1 MG/ML 2ML VIAL ONE ×2 (07:08→07:56)
[2022-11-18] MEDS ORDERED: MEPERIDINE-PF 25 MG/ML SYG ONE ×2 (07:08→07:56)
[2022-11-18] MEDS ORDERED: IODIXANOL 320 MG/ML 100 ML VIAL ONE (07:08)
[2022-11-18] MEDS ORDERED: BUPIVACAINE/PF 0.25% 30ML VIAL IJ ONE (07:08)
[2022-11-18] MEDS ORDERED: LIDOCAINE HCL 1% MDV 50ML VIAL ONE (07:08)
[2022-11-18] MEDS ORDERED: CEFAZOLIN SODIUM 1 GM VIAL ONE (07:08)
[2022-11-18] MEDS ORDERED: BACITRACIN 1 EACH PACKET TP ONE (08:54)
[2022-11-18] MEDS ORDERED: TRAM50TA4 PO (09:15)
[2022-11-18] MEDS ORDERED: ACETAMINOPHEN 500 MG TABLET PO PRN (09:30)
[2022-11-18] MEDS ORDERED: ACETAMINOPHEN WITH CODEINE 1 TAB TAB PO PRN ×3 (09:30)
== END 2022-11-18 11:15 | disposition home or self-care (01) ==
LOC: DAH 05:53
PROVIDERS: ATTEND Internal Medicine Cardiovascular Disease
DX: I25.5 Ischemic cardiomyopathy (principal); I49.5 Sick sinus syndrome; I48.0 Paroxysmal atrial fibrillation; I44.7 Left bundle-branch block, unspecified; I49.1 Atrial premature depolarization; I11.0 Hypertensive heart disease with heart failure; I50.21 Acute systolic (congestive) heart failure; E11.51 Type 2 diabetes mellitus with diabetic peripheral angiopathy without gangrene; I87.2 Venous insufficiency (chronic) (peripheral); I25.10 Atherosclerotic heart disease of native coronary artery without angina pectoris; E78.5 Hyperlipidemia, unspecified; E11.9 Type 2 diabetes mellitus without complications; E03.9 Hypothyroidism, unspecified; E66.9 Obesity, unspecified; Z86.16 Personal history of COVID-19; Z95.1 Presence of aortocoronary bypass graft; Z68.31 Body mass index [BMI] 31.0-31.9, adult; Z83.3 Family history of diabetes mellitus; Z82.49 Family history of ischemic heart disease and other diseases of the circulatory system; Z98.890 Other specified postprocedural states
CPT/HCPCS: 80048; 85025; 85610; 85730; 36415; 93005; 33264; 33225; 82948 ×2; 71045; C1769 ×2; C1882; C1900; J0690; J7030; J3490 ×2; J2250; J2175; Q9967; A4215; A4222; A4221; A4663; A4216; A4606; A4223 ×3; 99156; 99157

== ENCOUNTER → 2023-01-30 | Outpatient (CLI) | payer MEDICARE ==
[~2023-01-30] MED LIST changes: +TRAM50TA4 PO
[2023-01-30 13:08] LABS: CREATININE 1.2 mg/dL (0.5-1.5); POTASSIUM 4.6 mmol/L (3.5-5.1)
== END | disposition home or self-care (01) ==
LOC: LAB 09:59
PROVIDERS: ATTEND Internal Medicine Cardiovascular Disease
DX: I50.22 Chronic systolic (congestive) heart failure (principal)
CPT/HCPCS: 36415; 80048; 83880

== ENCOUNTER → 2023-03-27 | Outpatient (CLI) | payer MEDICARE ==
[2023-03-27 13:07] LABS: CREATININE 1.4 mg/dL (0.5-1.5); POTASSIUM 4.8 mmol/L (3.5-5.1)
== END | disposition home or self-care (01) ==
LOC: LAB 10:05
PROVIDERS: ATTEND Internal Medicine Cardiovascular Disease
DX: I50.22 Chronic systolic (congestive) heart failure (principal)
CPT/HCPCS: 36415; 80048; 83880

== ENCOUNTER 2023-07-11 19:13 | Emergency (ER) | payer MEDICARE ==
[~2023-07-11] VITALS: Ht 165.1 cm; Wt 95.3 kg
[2023-07-11 20:30] LABS: BASOPHILS # (AUTO) 0.04 K/uL (0.00-0.20); BASOPHILS % (AUTO) 0.4 % (0.0-5.0); EOSINOPHILS # (AUTO) 0.49 K/uL (0.00-0.70); EOSINOPHILS % (AUTO) 4.3 % (0.0-8.0); HEMATOCRIT 30.3 % (42-54); IMMATURE GRANULOCYTE ABSOLUTE 0.12 K/uL (0-1); LYMPHOCYTES # (AUTO) 1.4 K/uL (1.0-4.8); MEAN CORPUSCULAR HEMOGLOBIN 33.5 pg (27.0-33.0); MEAN CORPUSCULAR HGB CONC 34.7 g/dL (32.0-36.0); MEAN CORPUSCULAR VOLUME 96.8 fL (79-99); MONOCYTES # (AUTO) 0.5 K/uL (0.1-1.0); MONOCYTES % (AUTO) 4.6 % (3.0-13.0); NEUTROPHILS # (AUTO) 8.9 K/uL (1.8-7.7); NEUTROPHILS % (AUTO) 77.6 % (40.0-77.0); PLATELET COUNT (AUTO) 178 K/uL (130-400); RED BLOOD CELL COUNT(AUTO) 3.13 MIL/uL (4.50-6.20); RED CELL DISTRIBUTION WIDTH 14.7 % (11.0-15.5); WHITE BLOOD COUNT (AUTO) 11.4 K/uL (4.8-10.8)
[2023-07-11 20:58] LABS: B-TYPE NATRIURETIC PEPTIDE 1230 pg/mL (0-100)
[2023-07-11 21:00] LABS: INR 1.13 (0.85-1.15); PROTHROMBIN TIME 13.2 SEC (9.6-11.6)
[2023-07-11 21:16] LABS: CREATININE 2.2 mg/dL (0.5-1.3); POTASSIUM 4.6 mmol/L (3.5-5.1)
[2023-07-11 21:25] LABS: ALBUMIN 3.1 g/dL (3.5-5.0); BILIRUBIN,TOTAL 0.6 mg/dL (0.2-1.0); TOTAL PROTEIN, SERUM 7.3 g/dL (6.0-8.3)
[2023-07-12 01:00] VITALS: BP 127/69; PULSE 75; RESP 18; O2SAT 99
== END 2023-07-12 01:55 | disposition short-term general hospital (02) ==
LOC: EDH 19:13
DX: S06.5XAA Traumatic subdural hemorrhage with loss of consciousness status unknown, initial encounter (principal); I10 Essential (primary) hypertension; E78.00 Pure hypercholesterolemia, unspecified; E11.9 Type 2 diabetes mellitus without complications; I48.91 Unspecified atrial fibrillation; Z79.4 Long term (current) use of insulin; Z79.899 Other long term (current) drug therapy; X58.XXXA Exposure to other specified factors, initial encounter; Y93.89 Activity, other specified; Y92.89 Other specified places as the place of occurrence of the external cause; Y99.8 Other external cause status
CPT/HCPCS: 36415; 70450; 71045; 80053; 82550; 83880; 84484; 85025; 85610; 85730; 93005